=== PATIENT | male | born 2005 | race Caucasian/White ===

== ENCOUNTER 2024-07-28 10:18 | Emergency (ER) | payer OTHER ==
[~2024-07-28] VITALS: Ht 167.6 cm; Wt 81.5 kg
[2024-07-28] MEDS: methocarbamoL 500 MG TAB PO ONE (12:08)
[2024-07-28] MEDS: KETOROLAC 60MG 2ML VIAL IM ONE (12:08)
[2024-07-28 13:35] VITALS: BP 127/75; TEMP 97.4; O2SAT 98
== END 2024-07-28 13:37 | disposition home or self-care (01) ==
LOC: M ED 10:18
DX: S46.011A Strain of muscle(s) and tendon(s) of the rotator cuff of right shoulder, initial encounter (principal); X58.XXXA Exposure to other specified factors, initial encounter; Y92.9 Unspecified place or not applicable; Y93.89 Activity, other specified; Y99.0 Civilian activity done for income or pay; Z88.0 Allergy status to penicillin
CPT/HCPCS: 73030; 96372; 99283; J1885

== ENCOUNTER 2025-02-24 15:30 | Emergency (ER) | payer OTHER ==
[~2025-02-24] VITALS: Ht 167.6 cm; Wt 90.6 kg
[2025-02-24 16:28] LABS: BASO # 0.1 10^3/uL (0.0-0.2); BASO % 0.6 % (0.0-1.0); EOS # 0.1 10^3/uL (0.0-0.5); EOS % 1.1 % (0.0-3.0); HEMATOCRIT 42.5 % (42.0-52.0); HEMOGLOBIN 14.4 g/dl (13.5-17.5); LYMPH # 3.3 10^3/uL (1.5-5.0); LYMPH % 39.2 % (24.0-44.0); MEAN CORPUSCULAR HEMOGLOBIN 30.8 pg (27.0-33.0); MEAN CORPUSCULAR HGB CONC 33.9 g/dl (32.0-36.5); MONO # 0.7 10^3/uL (0.0-0.8); MONO % 8.3 % (2.0-8.0); NEUTROPHILS # 4.2 10^3/uL (1.5-8.5); NEUTROPHILS % 50.4 % (36.0-66.0); PLATELET COUNT, AUTOMATED 291 10^3/uL (150-450); RED BLOOD COUNT 4.67 10^6/uL (4.30-6.10); WHITE BLOOD COUNT 8.3 10^3/uL (4.0-10.0)
[2025-02-24 16:59] LABS: BLOOD UREA NITROGEN 14 MG/DL (9-23); CALCIUM LEVEL 9.6 MG/DL (8.5-10.1); CARBON DIOXIDE LEVEL 26 MMOL/L (20-31); CHLORIDE LEVEL 104 MMOL/L (98-107); CREATININE FOR GFR 0.82 MG/DL (0.70-1.30); GLOMERULAR FILTRATION RATE > 90.0 (>60); GLUCOSE, FASTING 87 MG/DL (60-100); POTASSIUM SERUM 4.3 MMOL/L (3.5-5.1); SODIUM LEVEL 140 MMOL/L (136-145)
[2025-02-24] MEDS: OXYMETAZOLINE 0.05% NASAL SPRAY ONE (17:06)
[2025-02-24 17:25] LABS: INR 0.92; PARTIAL THROMBOPLASTIN TIME 27.2 SECONDS (24.8-34.2); PROTHROMBIN TIME 12.7 SECONDS (12.5-14.5)
[2025-02-24] MEDS ORDERED: 12 H0.056 (17:56)
[2025-02-24 18:24] VITALS: BP 123/64; TEMP 97.8; O2SAT 98
== END 2025-02-24 18:27 | disposition home or self-care (01) ==
LOC: M ED 15:30
DX: R04.0 Epistaxis (principal); Z88.0 Allergy status to penicillin

== ENCOUNTER 2025-07-22 01:05 | Emergency (ER) | payer OTHER ==
[~2025-07-22] VITALS: Ht 167.6 cm; Wt 91.8 kg
[~2025-07-22 01:05] MED LIST: 12 H0.056
[2025-07-22] MEDS ORDERED: HYDR-3363 PO (05:31)
[2025-07-22] MEDS ORDERED: **hydrALAZINE HCL** 25 MG TAB As Ordered ONE (06:23)
[2025-07-22 06:44] VITALS: BP 122/76; TEMP 96.7; O2SAT 96
== END 2025-07-22 06:30 | disposition home or self-care (01) ==
LOC: M ED 01:05
DX: L20.9 Atopic dermatitis, unspecified (principal); Z79.899 Other long term (current) drug therapy; Z88.0 Allergy status to penicillin